=== PATIENT | male | born 1965 | race Two or more races ===

== ENCOUNTER 2018-10-15 11:30 | Day surgery (SDC) | payer OTHER ==
[2018-10-14 12:59] VITALS: BMI 22.9
--- NOTE | 2018-10-15 11:00 | PN ---
Progress Note (short form) - Note Progress Note: 53M s/p MARCOS & revision ORIF LEFT patella POD #0. -Pain control. -DVT PPx: -Chemical: ASA 81mg PO BID x 6 weeks. -Mechanical: RLE TORSTEN, RLE SCD. -Antibiotics: Ancef x 2 post op doses. -Incentive spirometry q15 min. -PT/OT/Rehab, OOB. -WBAT LLE. -No ROM LEFT KNEE; Apply knee immobilizer/Warrick brace in full extension at all times. -f/u post-op trial of void: 8 hours MAX. -Diet as tolerated. -Keep dressing clean & dry. -Care per medical hospitalist team. -f/u [facility] office 09/30/2018; call Stewart for appointment ; . -Will follow. Andi Farmer MD (Orthopaedic Surgery).
--- NOTE | 2018-10-15 11:02 | OP ---
Operative Note - Note: Operative Date: 10/15/18 Pre-Operative Diagnosis: Mal-positioned left patellar screw s/p ORIF Operation: Left patella: 1. Removal of hardware. 2. Revision open reduction internal fixation. 3. Use of demineralized bone matrix putty Findings: Comminuted healing well. Main oblique fracture resulting in 2 large fragments not yet united. Post-Operative Diagnosis: Same as Pre-op Surgeon: Andi Farmer Mortgage Or Loan Underwriter: Ammon Farmer Anesthesiologist/ACTIVITY AIDE: Alvaro Johnston Anesthesia: General, Local (Block) Specimens Removed: Hardware (Synthes Combi Plate, screws; cannulated screws) Estimated Blood Loss (mls): 0 Fluid Volume Replaced (mls): 700 (Crystalloid) Operative Report Dictated: Yes
[~2018-10-15 11:30] MED LIST: BENZOIN/ALOE VERA/STORAX/TOLU 58 ML BOTTLE ONE; BUPIVACAINE LIPOSOME/PF (EXPAREL) 266 MG/20 ML VIAL ONE; DEXAMETHASONE SOD PHOSPHATE 4 MG/1 ML VIAL ONE; LACTATED RINGERS SOLUTION 1,000 ML IV SCH; LIDOCAINE HCL/PF 2% SDV 5ML VIAL ONE; MAG HYDROX/AL HYDROX/SIMETH 30 ML UNIT-DOSE CUP PO PRN; MAGNESIUM HYDROX 2400MG/30ML ORAL SUSPENSION 30 ML CUP PO PRN; MIDAZOLAM HCL 2 MG/2 ML SINGLE DOSE VIAL ONE; ONDANSETRON 4 MG/2 ML VIAL IVPUSH PRN; ONDANSETRON 4 MG/2 ML VIAL ONE; PROPOFOL 20 ML ONE; SODIUM CHLORIDE 0.9% P/F 10 ML VIAL IJ ONE; VANCOMYCIN 1,000 MG VIAL (RESTRICTED TO ID ONLY) ONE; ceFAZolin SODIUM 1 GM VIAL ONE; oxyCODONE HCL 5 MG TABLET ONE; oxyCODONE HCL 5 MG TABLET PO PRN
[2018-10-15] MEDS: oxyCODONE HCL 5 MG TABLET PO PRN ×2 (11:31→17:28)
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
[2018-10-15] MEDS ORDERED: CEFAZOLIN 1 GM/D5W 1 GM/50 ML BAG IVPB SCH (15:00)
[2018-10-15] MEDS: CEFAZOLIN 1 GM/D5W 1 GM/50 ML BAG IVPB SCH (15:13)
[2018-10-15] MEDS: INSULIN SLIDING SCALE (NOVOLOG) 1 VIAL SQ SCH (16:47)
[2018-10-15] MEDS: SENNOSIDES/DOCUSATE COMBO (SENNA PLUS) TABLET (UD) PO SCH (21:15)
[2018-10-15] MEDS: ASPIRIN 81 MG CHEWABLE TABLETS PO SCH (21:15)
[2018-10-15] MEDS ORDERED: ATORVASTATIN CA 10 MG TABLET (FP) PO SCH (22:00)
[2018-10-16] MEDS: CEFAZOLIN 1 GM/D5W 1 GM/50 ML BAG IVPB SCH ×2 (00:29→06:37)
[2018-10-16] MEDS: oxyCODONE HCL 5 MG TABLET PO PRN ×2 (02:35→09:49)
[2018-10-16] MEDS: INSULIN SLIDING SCALE (NOVOLOG) 1 VIAL SQ SCH ×3 (06:37→11:46)
[2018-10-16] MEDS: LACTATED RINGERS SOLUTION 1,000 ML IV SCH ×2 (07:35→09:48)
--- NOTE | 2018-10-16 08:25 | OP ---
Date of Operation: 10/15/2018 Pre-Operative Diagnosis: 1. Migration of hardware left patella. 2. Symptomatic hardware left patella. Post-Operative Diagnosis: 1. Migration of hardware left patella. 2. Hardware failure left patella. Procedure Performed: 1. Removal of hardware left patella 2. Inspection left comminuted patella fracture 3. Revision open reduction internal fixation left comminuted patella fracture 4. Bone allograft (demineralized bone matrix putty) 5. Intra-operative fluoroscopy Surgeon: Andi Farmer M.D. Motor Adjuster: Ammon Farmer M.D. Anesthesia: General (LMA), spinal, adductor canal block. Position: Supine Incision: Midline Specimens Removed: Hardware (multi-hole plate w/cortical and locking screws; 4.0mm cannulated screws). Tourniquet Pressure: 300 mmHg. Tourniquet Time: 110 minutes. Estimated Blood Loss: 0 mL. Intravenous Fluid: 1L crystalloid. Specimens: None. Drains: None. Complications: None. Urine Output: None. Bacteriology: None. Transfusions: None. Closure: No. 1 Vicryl, 3-0 Biosyn absorbable sutures. INDICATIONS: The patient was indicated for removal of left patellar hardware, inspection of fracture healing, and possible revision open reduction and internal fixation of his comminuted left patella fracture. This procedure was indicated to facilitate fracture healing, to allow safe range of motion of the left knee, to improved motion and mobilization, and to prevent the complications associated with a sedentary lifestyle. The patient was identified in the holding area by his armband. A long discussion was held with the patient, regarding the risks, benefits, and alternatives of the above-named procedure. The risks include, but are not limited to: Pain, bleeding, infection, damage to surrounding structures (including nerves, blood vessels, skin, ligaments, tendons, and bone), wound complications, failure of hardware/implants/reduction , need for further surgery, blood clots, myocardial infarction, cerebrovascular injury, pulmonary embolism, anesthesia complications, compartment syndrome, limb loss, limp, loss of function, and . Benefits were as mentioned above. Alternatives include no surgery. The main concern with non-surgical management predominantly revolved around a 4.0mm screw that lay within the patellofemoral joint. All questions were answered. The patient agreed to the procedure. Informed consent was obtained, witnessed, and verified. The patient's correct operative limb - that is the left lower extremity - was marked and he then received a left lower extremity adductor canal nerve block in the preoperative holding area. The patient was taken to the operating room after being seen by the anesthesia and nursing staff. PROCEDURE: The patient was brought into the operating room and transferred to the OR table , where he was secured with a safety strap. Consent and the operative site were again verified with the patient and nursing and anesthesia staff. Upon arrival into the operating room, he received 1g of intravenous vancomycin, 2g of intravenous Ancef, and 1g intravenous tranexamic acid (TXA). A time-out was then done led by , the attending surgeon. Anesthesia was then administered. A preoperative orthopedic examination revealed a well-healed midline longitudinal incision overlying the left knee, with palpable protuberant hardware. There was obvious atrophy of the left thigh musculature in comparison with the right side. The patient was positioned with all bony prominences well padded, and a tourniquet was placed proximally on the left thigh and set to 300 mmHg. A C-arm fluoroscopy unit was positioned perpendicularly to the table and maintained at the level of the patients thigh. The operative limb was prepped in standard sterile fashion using betadine prep & scrub, wiped off with alcohol, DuraPrep applied, and then free draped. A time-out was again done. The limb was then exsanguinated using elevation and an Esmarch. The tourniquet was inflated, and the case began. A midline longitudinal incision was made through the previous incision overlying the left knee. Sharp dissection was carried down to expose the distal quadriceps tendon, the breadth of the patella, and the patellar ligament. Sharp dissection was utilized to expose the anterior combi-plate. All screws except one were loose and several screws were backing out with poor fixation. All cortical and locking screws, and the plate, were successfully removed. Next, each of the two 4.0mm cannulated screw heads were localized via fluoroscopy. A 1cm longitudinal incision was made in the quadriceps tendon, in line with the tendon fibers, overlying each screw head. Each screw was successfully removed with a screwdriver. The patella fracture was then inspected. The comminuted fracture fragments were uniting well, as there was no evidence of motion or displacement between them when stressed with a bone tamp. The knee was then gently flexed. At 45 degrees of flexion, a long, oblique fracture of the patella became evident. The two large fracture fragments began to displace approximately with a fracture gap of approximately 5mm. The knee was not flexed past this point. There was no other evidence of instability among the numerous other fracture fragments. With the fracture gapped open, 1cc of demineralized bone matrix putty bone allograft was injected into the fracture site. Next, the knee was fully extended and the fracture was reduced using a large, pointed reduction clamp. An anatomic reduction was achieved, as confirmed via fluoroscopy. Two parallel K-wires were then drilled longitudinally from the superior pole through the distal pole of the patella. A 14-gauge angiocath was then used to deliver 16-gauge wire around the K-wires in figure-eight fashion. The wire was then tensioned using a wire keyboarding clerk on one side, and a needle-screw driver operator on the other in classic AO technique. This completed the tension-band fixation construct and revision open-reduction and internal fixation of the left patella fracture. The distal ends of the K-wires were localized. A 0.5cm longitudinal incision was made in the patellar ligament, in line with the tendon fibers, overlying the ends of each K-wire. The proximal and distal ends of both K-wires were bent, turned to face away from the quadriceps tendon and patellar ligament, and buried to prevent skin irritation. The wound and soft tissues were copiously irrigated with normal saline solution throughout the case. AP and lateral biplanar fluoroscopy demonstrated that the fracture was well reduced, and that all hardware was in good position. Hemostasis was assured. The wounds were closed primarily using No. 1 Vicryl sutures, and the skin was closed using a 3-0 Biosyn suture in intracuticular running fashion. Next, the skin surface was cleaned using saline-soaked lap pads and dried using dry lap pads. Benzoin, Steri-Strips, and a JumpStart dressing were applied over the wounds. Webril and Yoni wraps were placed from the foot all the way up to the thigh completing a sterile, compressive dressing. The tourniquet was then released at a final time of 110 minutes. The patients Beni brace was applied to the left knee locked in full extension. The sponge and needle counts were correct at the end of the case, and I, the attending surgeon, was present and scrubbed throughout the case. The patient was then transferred to the hospital bed and then to the recovery room in stable condition having tolerated this procedure well. MD SHABNAM Mina/[id number] MTDD
[2018-10-16 08:33] LABS: HEMATOCRIT 43.1 % (35.4-49); HEMOGLOBIN 13.6 GM/dl (11.7-16.9); MCH 25.9 pg (25.7-33.7); MCHC 31.5 g/dl (32.0-35.9); MEAN CELL VOLUME 82.1 fl (80-96); MEAN PLT VOLUME 8.4 fl (7.5-11.1); PLATELET COUNT 259 K/MM3 (134-434); RBC 5.24 M/mm3 (4.00-5.60); RDW 13.6 % (11.9-15.9); WHITE BLOOD COUNT 10.9 K/mm3 (4.0-10.8)
[2018-10-16 09:34] VITALS: BP 139/73; PULSE 76; TEMP 98.1
[2018-10-16] MEDS: ASPIRIN 81 MG CHEWABLE TABLETS PO SCH (09:49)
[2018-10-16] MEDS: SENNOSIDES/DOCUSATE COMBO (SENNA PLUS) TABLET (UD) PO SCH (09:53)
[2018-10-16] MEDS ORDERED: CHOLECALCIFEROL (VIT D3) 1,000 UNIT (25 MCG) TABLET PO SCH (10:00)
[2018-10-16] MEDS ORDERED: PANTOPRAZOLE 40 MG TABLET (FP) PO SCH (10:00)
--- NOTE | 2018-10-16 11:10 | PN ---
Progress Note (short form) - Note Progress Note: Anesthesia post op note, POD#1 S/P left knee hardware removal, under regional and spinal anesthesia. Pain well controlled, pain score 2-3/10. No apparent post anesthesia complications. Signed off.
--- NOTE | 2018-10-17 18:14 | PATH ---
Surgical Pathology Report Patient Name: MICHELLE CABELLO Med. Rec. #: [id number] /Age/Gender: 1965 (Age: 53) / M Account: [id number] Location: [facility] MED[facility] Taken: 10/15/2018 Received: 10/15/2018 Reported: 10/17/2018 Physicians: Andi Farmer M.D. Specimen(s) Received LEFT KNEE EXPLANTS Clinical History Left patella fracture Final Diagnosis KNEE, LEFT, PATELLA EXPLANT, REMOVAL: SURGICAL HARDWARE. MACROSCOPIC DIAGNOSIS. Electronically Signed Mary Box M.D. Gross Description Received fresh labeled "left knee patella explants," is a 5.5 x 0.6 x 0.2 cm hinkle metallic plate. Also received within the same container are 8 hinkle metallic screws ranging from 1.1-3.8 cm in length. No soft tissue is present. No sections are submitted, gross only. /10/16/2018 saudi10/16/2018
[2018-10-22 11:07] LABS: ANION GAP 14 MMOL/L (8-16); BLOOD UREA NITROGEN 18 mg/dl (7-18); CALCIUM 9.2 mg/dl (8.5-10); CHLORIDE 98 mmol/L (98-107); CO2 23 mmol/L (21-32); CREATININE 1.2 mg/dl (0.55-1.3); GLUCOSE,RANDOM 108 mg/dl (74-106); POTASSIUM 3.9 mmol/L (3.5-5.1); SODIUM 135 mmol/L (136-145)
== END 2018-10-16 12:00 | disposition home or self-care (01) ==
LOC: FASUSAT 11:30 → FM/S 11:57 → FASUSAT 10-16 12:00
PROVIDERS: ATTEND Orthopaedic Surgery Adult Reconstructive Orthopaedic Surgery
PROC: 0QSF04Z Reposition Left Patella with Internal Fixation Device, Open Approach (ICD-10-PCS; principal; 2018-10-15 08:29)
PROC: 0QPF04Z Removal of Internal Fixation Device from Left Patella, Open Approach (ICD-10-PCS; 2018-10-15 08:29)
DX: S82.042D Displaced comminuted fracture of left patella, subsequent encounter for closed fracture with routine healing (principal); T84.127A Displacement of internal fixation device of bone of left lower leg, initial encounter; T84.197A Other mechanical complication of internal fixation device of bone of left lower leg, initial encounter; Y79.1 Therapeutic (nonsurgical) and rehabilitative orthopedic devices associated with adverse incidents; Y92.9 Unspecified place or not applicable; X58.XXXD Exposure to other specified factors, subsequent encounter
CPT/HCPCS: 36415; 73560-TC-LT-FY; 80048; 82962; 83735; 85027; 88300-TC; 94760; 97116-GP; 97162-GP

== ENCOUNTER 2019-06-26 09:32 | Day surgery (SDC) | payer OTHER ==
[2019-06-22 14:08] VITALS: BMI 22.9
[2019-06-26] MEDS ORDERED: DEXAMETHASONE SOD PHOSPHATE 4 MG/1 ML VIAL ONE ×2 (10:47→12:37)
[2019-06-26] MEDS ORDERED: ceFAZolin SODIUM 1 GM VIAL ONE (10:47)
[2019-06-26] MEDS ORDERED: PROPOFOL 20 ML ONE ×2 (10:47)
[2019-06-26] MEDS ORDERED: ONDANSETRON 4 MG/2 ML VIAL ONE ×3 (10:48→14:20)
[2019-06-26] MEDS ORDERED: MIDAZOLAM HCL 2 MG/2 ML SINGLE DOSE VIAL ONE ×4 (10:49→13:56)
[2019-06-26] MEDS ORDERED: ROPIVACAINE HCL 0.5% 30ML VIAL ONE (11:01)
[2019-06-26] MEDS ORDERED: BUPIVACAINE LIPOSOME/PF (EXPAREL) 266 MG/20 ML VIAL ONE (11:08)
[2019-06-26] MEDS ORDERED: ONDANSETRON 4 MG/2 ML VIAL IVPUSH PRN (11:09)
[2019-06-26] MEDS ORDERED: oxyCODONE HCL 5 MG TABLET PO PRN (11:09)
[2019-06-26] MEDS ORDERED: LACTATED RINGERS SOLUTION 1,000 ML IV SCH (11:15)
[2019-06-26] MEDS ORDERED: KETOROLAC TROMETHAMINE 30 MG/1 ML VIAL IVPUSH ONE (14:12)
--- NOTE | 2019-06-26 14:14 | PN ---
Progress Note (short form) - Note Progress Note: 54M s/p MARCOS LEFT knee POD #0. -Pain control. -WBAT LLE. -Percocet, Duexis ordered to patient's pharmacy. -f/u post-op trial of void. -Diet as tolerated. -Keep dressing clean & dry. -Cane vs crutches. -f/u [facility] 7-10 days; call for appointment; . Andi Farmer MD (Orthopaedic Surgery).
--- NOTE | 2019-06-26 14:15 | OP ---
Operative Note - Note: Operative Date: 06/26/19 Pre-Operative Diagnosis: Painful hardware left knee Operation: Removal of hardware left knee Post-Operative Diagnosis: Same as Pre-op Surgeon: Andi Farmer Director Business Integration: Ammon Farmer Anesthesiologist/WOOD SKI MAKER: Levar Martinez Anesthesia: General, Local Specimens Removed: Left knee hardware Estimated Blood Loss (mls): 0 Fluid Volume Replaced (mls): 1,000 (Crystalloid) Operative Report Dictated: Yes
[2019-06-26 16:15] VITALS: TEMP 98.2
[2019-06-26] MEDS ORDERED: oxyCODONE HCL 5 MG TABLET ONE (16:16)
[2019-06-26 17:09] VITALS: BP 136/80; PULSE 72
[2019-06-26] MEDS ORDERED: ATORVASTATIN CA 10 MG TABLET (FP) PO SCH (22:00)
[2019-06-27] MEDS ORDERED: CHOLECALCIFEROL (VIT D3) 1,000 UNIT (25 MCG) TABLET PO SCH (10:00)
--- NOTE | 2019-06-29 11:40 | OP ---
Date of Operation: 06/26/2019 Surgeon: Andi Farmer MD Plastics Engineering Teacher: Ammon Farmer MD Pre-Operative Diagnosis: Painful left knee hardware Post-Operative Diagnosis: Painful left knee hardware Surgical Procedure: Removal of hardware/deep implants/wires left knee. (11358) Anesthesia: General (LMA), local block. Position: Supine. Incision: Anterior. Tourniquet Pressure: 250mmHg. Tourniquet Time: 70 minutes. Estimated Blood Loss: 0cc. Intravenous Fluid: 1L crystalloid. Specimens: None. Drains: None. Complications: None. Urine output: None. Bacteriology: None. Transfusions: None. Closure: #1 and 2-0 Vicryl; 3-0 Biosyn. Indications: The patient was indicated for removal of symptomatic left knee hardware to facilitate improved motion and mobilization, and to prevent complications associated with a sedentary lifestyle. The patient was identified in the holding area by his armband. A long discussion was held with the patient regarding the risks, benefits and alternatives of the above-named procedure. Risks include but are not limited to: pain, bleeding, infection, damage to surrounding structures (including nerves, blood vessels, skin, ligaments, tendons and bone), wound complications, need for further surgery, re-fracture of the patella, blood clots, myocardial infarction, pulmonary embolism, anesthesia complications, compartment syndrome, limb loss, limp, loss of function, and . Benefits as mentioned above. Alternatives include no surgery. All questions were answered. The patient understood and agreed to the procedure. Informed consent was obtained, witnessed and verified. The patients correct operative limb - the left lower extremity - was marked, and the patient was taken to the operating room after being seen by the anesthesia and nursing staff. Procedure: The patient was brought into the operating room, placed on the OR table and secured with a safety strap. Consent and the operative site were again verified with the patient and nursing and anesthesia staff. Anesthesia was then administered without complication. 2g IV Ancef were administered. A time out was done led by me, the attending surgeon. The patient was positioned with bony prominences well padded, and a tourniquet was placed proximally on the left thigh and set to 250mmHg. The operative limb was prepped in standard sterile fashion using betadine prep & scrub, wiped off with alcohol, and then DuraPrep applied. The operative limb was then free draped. Time out was again done, the limb was exsanguinated using an Esmarch, the tourniquet was inflated, and the case began. The previous midline longitudinal left knee incision was utilized. Sharp dissection was carried down to the anterior surface of the patella. The medial and lateral patellar margins were exposed via sharp dissection, revealing the figure-8 cerclage wire. The wire was cut and successfully removed. Next, mini-C arm fluoroscopy was utilized to locate the 2 buried pins. Directly over the ends of each of the pins, longitudinal stab incisions were made in the quadriceps tendon and patellar ligament. These incisions were made in the lines of the fibers so that the fibers were split and not transected. Ragnell retractors were used to retract the soft tissue adjacent to each incision, revealing the pins below. The pins were rotated, cut, and successfully removed. The wound was thoroughly irrigated with normal saline solution throughout the case. The wounds were closed primarily using No. 1 and 2-0 Vicryl sutures, and the skin was eventually closed using 3-0 Biosyn in intracuticular running fashion. Next, the skin surface was cleaned using saline-soaked lap pads and then dried using dry lap pads. Benzoin and Steri-Strips as well as a JumpStart dressing were applied over the wound, and Webril as well as Yoni wraps were placed over the knee. The patient's [place] brace was loosely applied to the left knee. The sponge and needle counts were correct at the end of the case, and I, the attending surgeon, was present and scrubbed throughout the case. The patient was then transferred to the hospital bed and then to the recovery room in stable condition having tolerated this procedure well. Portable AP & lateral left knee x-rays at the end of the case revealed that all hardware had been successfully removed from the left knee. The patellar fracture appeared well-healed with no evidence of fracture. MD SHABNAM Mina/[id number] MTDD
--- NOTE | 2019-06-30 13:55 | PATH ---
Surgical Pathology Report Patient Name: MICHELLE CABELLO Med. Rec. #: [id number] /Age/Gender: 1965 (Age: 54) / M Account: [id number] Location: [facility] Taken: 06/26/2019 Received: 06/26/2019 Reported: 06/30/2019 Physicians: Ammon Farmer M.D. Specimen(s) Received EXPLANTED HARDWARE LEFT KNEE Clinical History Painful hardware left knee Final Diagnosis EXPLANTED HARDWARE, KNEE, LEFT, REMOVAL: SURGICAL HARDWARE. MACROSCOPIC DIAGNOSIS. Electronically Signed Mary Box M.D. Gross Description Received fresh labeled "explanted hardware left knee," are 7 hinkle metallic portions of hardware ranging from 0.8-6.5 cm in greatest dimension, consistent with wire. No soft tissue is present. No sections are submitted, gross only. 06/29/2019 saudi06/29/2019
== END 2019-06-26 17:00 | disposition home or self-care (01) ==
LOC: FASU 09:32
PROVIDERS: ATTEND Orthopaedic Surgery Orthopaedic Surgery of the Spine
PROC: 0SPD04Z Removal of Internal Fixation Device from Left Knee Joint, Open Approach (ICD-10-PCS; principal; 2019-06-26 11:15)
DX: T84.84XA Pain due to internal orthopedic prosthetic devices, implants and grafts, initial encounter (principal); Y79.1 Therapeutic (nonsurgical) and rehabilitative orthopedic devices associated with adverse incidents; Y92.9 Unspecified place or not applicable
CPT/HCPCS: 73560-TC-LT-FY; 82962; 88300-TC; 94760